=== PATIENT | female | born 1955 | race Caucasian/White ===

== ENCOUNTER 2018-09-16 10:11 | Emergency (ER) | payer OTHER ==
[2018-09-16 10:16] VITALS: BP 125/77; TEMP 98.3; BMI 25.8
[2018-09-16] MEDS ORDERED: SODIUM CHLORIDE 1,000 ML IV STA (10:29)
--- NOTE | 2018-09-16 10:29 | ED.PDOC ---
General ED Provider: Dr. CELSA BALDWIN Chief Complaint: Nausea/Vomiting Stated Complaint: Nausea, Vomiting and Diarrhea. Onset suddently last evening. States her granddaughter and daughter's family have all had GI flu symptoms. States no fever but unable to keep food/liquids down Time Seen by Physician: 10:25 Mode of Arrival: Walk-In Information Source: Patient Exam Limitations: No limitations Primary Care Provider: CELSA REY Nursing and Triage Documentation Reviewed and Agree: Yes Does patient meet sepsis criteria?: No If yes, has appropriate treatment been initiated?: Yes System Inflammatory Response Syndrome: Not Applicable Sepsis Protocol: For patient's 13 years and over: Temp is 96.8 and below OR 101 and greater Pulse >90 BPM Resp >20/minute Acutely Altered Mental Status Are patient's symptoms suggestive of a new infection, such as: -Pneumonia -Skin, Soft Tissue -Endocarditis -UTI -Bone, Joint Infection -Implantable Device -Acute Abdominal Infection -Wound Infection -Meningitis -Blood Stream Catheter Infection -Unknown GI Complaint Exam - Vomiting/Diarrhea Complaint/Exam Onset/Duration: Yesterday Symptoms Are: Still present Initial Severity: Moderate Current Severity: Moderate Character of Vomiting: Reports: Bilious Character of Diarrhea: Reports: Watery Aggravating: Reports: Liquids Alleviating: Reports: NPO Associated Signs and Symptoms: Reports: Light-headedness Related History: Reports: Similar episode Last Oral Intake: Earlier this AM Non-GI Risk Factors: Reports: None Surgical Obstruction Risk Factors: Reports: None Related Surgical History: Reports: None Abdominal Findings: Present: Other (Tenderness and hyper active Bowel Sounds) Kussmaul Respirations Present: No Differential Diagnoses: Viral Gastroenteritis Review of Systems - Review Of Systems Constitutional: Reports: No symptoms, Weakness, Loss of appetite Eyes: Reports: No symptoms Ears, Nose, Mouth, Throat: Reports: No symptoms Respiratory: Reports: No symptoms Cardiac: Reports: No symptoms GI: Reports: Diarrhea, Nausea, Poor appetite, Poor fluid intake, Vomiting : Reports: No symptoms Musculoskeletal: Reports: No symptoms Skin: Reports: No symptoms Neurological: Reports: No symptoms Endocrine: Reports: No symptoms Hematologic/Lymphatic: Reports: No symptoms All Other Systems: Reviewed and Negative Past Medical History - Past Medical History Previously Healthy: Yes Endocrine: Reports: None Cardiovascular: Reports: None Respiratory: Reports: None Hematological: Reports: None Gastrointestinal: Reports: None Genitourinary: Reports: None Neuro/Psych: Reports: None Musculoskeletal: Reports: None Cancer: Reports: None Last Menstrual Period: menopause - Surgical History General Surgical History: Reports: None - Family History Family History: Reports: None - Social History Smoking Status: Current every day smoker, Heavy tobacco smoker Hx Substance Use: No Alcohol Screening: Occasionally Physical Exam - Physical Exam Appearance: Well-appearing, No pain distress, Well-nourished Eyes: MELISSA, EOMI, Conjunctiva clear ENT: Ears normal, Nose normal, Oropharynx normal Respiratory: Airway patent, Breath sounds clear, Breath sounds equal, Respirations nonlabored Cardiovascular: RRR, Pulses normal, No rub, No murmur GI/: Soft, No masses, Bowel sounds normal, No Organomegaly, Tender, Bowel sounds hyperactive Musculoskeletal: Normal strength, ROM intact, No edema, No calf tenderness Skin: Warm, Dry, Normal color Neurological: Sensation intact, Motor intact, Reflexes intact, Cranial nerves intact, Alert, Oriented Psychiatric: Affect appropriate, Mood appropriate Interpretation - Radiology Interpretation Radiology Interpretation By: Radiologist Radiology Results: Positive Exam Interpreted: CXR Xray Comments: bibasilar atelectasis Critical Care Note - Critical Care Note Total Time (mins): 60 Course - Course Hematology/Chemistry: 09/16/18 10:35 09/16/18 10:35 Orders, Labs, Meds: Lab Review 09/16/18 09/16/18 09/16/18 10:25 10:35 10:35 WBC 14.76 H RBC 5.76 H Hgb 16.2 H Hct 49.4 H MCV 85.8 MCH 28.1 MCHC 32.8 RDW Coeff of Luca 14.6 Plt Count 235 Immature Gran % (Auto) 0.3 Neut % (Auto) 92.5 Lymph % (Auto) 2.8 L [place] % (Auto) 3.7 Eos % (Auto) 0.3 Baso % (Auto) 0.4 Immature Gran # (Auto) 0.1 Neut # (Auto) 13.7 H Lymph # (Auto) 0.4 L [place] # (Auto) 0.5 Eos # (Auto) 0.0 Baso # (Auto) 0.1 Sodium 134.7 Potassium 3.44 L Chloride 100.4 Carbon Dioxide 23.9 Anion Gap 13.84 BUN 18.1 H Creatinine 0.66 Estimated GFR (MDRD) 90.00 BUN/Creatinine Ratio 27.42 Glucose 118.5 H Calcium 8.60 Total Bilirubin 0.38 AST 76.5 H ALT 56.0 H Alkaline Phosphatase 94.8 Total Protein 7.42 Albumin 4.21 Globulin 3.21 Albumin/Globulin Ratio 1.31 Lipase 214.0 Urine Color Yellow Urine Clarity Clear Urine pH 6.0 Ur Specific [place] >=1.030 Urine Protein 2+ Urine Glucose (UA) Negative Urine Ketones Negative Urine Blood 2+ Urine Nitrite Negative Urine Bilirubin Negative Urine Urobilinogen 0.2 Ur Leukocyte Esterase Trace Urine Microscopic RBC 2-5 Urine Microscopic WBC 5-10 Ur Squamous Epith Cells 2-5 Amorphous Sediment Trace Urine Bacteria 3+ Coarse Granular Casts 0-2 Influ A Molecular Assay Influ B Molecular Assay 09/16/18 10:40 WBC RBC Hgb Hct MCV MCH MCHC RDW Coeff of Luc[place] Plt Count Immature Gran % (Auto) Neut % (Auto) Lymph % (Auto) [place] % (Auto) Eos % (Auto) Baso % (Auto) Immature Gran # (Auto) Neut # (Auto) Lymph # (Auto) [place] # (Auto) Eos # (Auto) Baso # (Auto) Sodium Potassium Chloride Carbon Dioxide Anion Gap BUN Creatinine Estimated GFR (MDRD) BUN/Creatinine Ratio Glucose Calcium Total Bilirubin AST ALT Alkaline Phosphatase Total Protein Albumin Globulin Albumin/Globulin Ratio Lipase Urine Color Urine Clarity Urine pH Ur Specific [place] Urine Protein Urine Glucose (UA) Urine Ketones Urine Blood Urine Nitrite Urine Bilirubin Urine Urobilinogen Ur Leukocyte Esterase Urine Microscopic RBC Urine Microscopic WBC Ur Squamous Epith Cells Amorphous Sediment Urine Bacteria Coarse Granular Casts Influ A Molecular Assay Negative by naat Influ B Molecular Assay Negative by naat Orders Category Date Time Status IV [ED IV/MEDIPORT/POWERPORT] .ONCE EMERGENCY 09/16/18 10:29 Active CBC W/ AUTO DIFF Stat LAB 09/16/18 10:35 Completed CMP [COMPREHENSIVE METABOLIC PANEL] Stat LAB 09/16/18 10:35 Completed FLU A & B MOLECULAR [FLU A/B MOLECULAR] Stat LAB 09/16/18 10:40 Completed LIPASE Stat LAB 09/16/18 10:35 Completed URINALYSIS C & S IF INDICATED Stat LAB 09/16/18 10:25 Completed URINE CULTURE Stat LAB 09/16/18 10:25 Received 0.9 % Sodium Chloride [Saline Flush] MEDS 09/16/18 10:29 Active 1 syr IVF PRN PRN Ondansetron HCl/Pf [Zofran 4 mg/2 ml] MEDS 09/16/18 10:30 Discontinued 4 mg IVP ONCE STA Sodium Chloride 0.9% [Sodium Chloride] 1,000 ml MEDS 09/16/18 10:29 Discontinued IV BOLUS CHEST, 2 VIEWS PA & LAT Stat RADS 09/16/18 12:38 Completed Medications Generic Name Dose Route Start Last Admin Trade Name Freq PRN Reason Stop Dose Admin Sodium Chloride 1 syr 09/16/18 10:29 09/16/18 10:51 Saline Flush IVF 1 syr PRN PRN Administration To flush IV Discontinued Medications Generic Name Dose Route Start Last Admin Trade Name Freq PRN Reason Stop Dose Admin Sodium Chloride 1,000 mls @ 1,000 mls/hr 09/16/18 10:29 09/16/18 10:51 Sodium Chloride IV 09/16/18 11:28 1,000 mls/hr BOLUS STA Administration Ondansetron HCl 4 mg 09/16/18 10:30 09/16/18 10:52 Zofran 4 Mg/2 Ml IVP 09/16/18 10:31 4 mg ONCE STA Administration Vital Signs: Temp Pulse Resp BP Pulse Ox 09/16/18 10:12 98.3 F 84 20 125/77 94 L Departure - Departure Time of Disposition: 14:10 Disposition: HOME SELF-CARE Discharge Problem: Acute gastroenteritis, Mild basilar atelectasis of both lungs Instructions: Gastroenteritis (ED) Condition: Good Pt referred to PMD for follow-up: Yes (1 wk) IPMP verified?: No Additional Instructions: advance diet as tolerated maintain good fluid intake Allergies/Adverse Reactions: Allergies No Known Allergies Allergy (Unverified 09/16/18 10:18) Home Medications: Ambulatory Orders Dextroamphetamine/Amphetamine [Adderall 10 mg Tablet] 10 mg PO BID 09/16/18 Multivitamin [Multi-Vitamin Daily] 1 each PO DAILY 09/16/18 Disposition Discussed With: Patient, Family
[2018-09-16] MEDS ORDERED: ZOFRAN 4 MG/2 ML IVP STA (10:30)
--- NOTE | 2018-09-16 13:03 | DI ---
EXAM: PA and lateral views of the chest HISTORY: Cough COMPARISON: Chest Xray from 04/22/2016 FINDINGS: There are new increased lung markings in both lung bases right greater than left which res emble atelectasis. There is no lobar infiltrate or failure or large effusion. Cardiac and mediastinal silhouettes show no acute abnormality. No acute osseous or soft tissue abnormalities. IMPRESSION: 1. Bibasilar lung markings right greater than left probably atelectasis.
== END 2018-09-16 14:34 | disposition home or self-care (01) ==
LOC: ED 10:11
DX: R11.2 Nausea with vomiting, unspecified (principal); R42 Dizziness and giddiness; R53.1 Weakness; R63.0 Anorexia; R19.7 Diarrhea, unspecified; Z72.0 Tobacco use; K52.9 Noninfective gastroenteritis and colitis, unspecified; J98.11 Atelectasis
CPT/HCPCS: 36415; 80053; 81001; 83690; 85025; 87086; 87186; 87502; 96361; 96374; 99283